=== PATIENT | female | born 1985 | race Caucasian/White ===

== ENCOUNTER 2019-01-05 02:55 | Inpatient (IN) | payer OTHER ==
[~2019-01-05] VITALS: Ht 172.7 cm; Wt 100.0 kg
--- NOTE | 2019-01-05 03:18 | NUR ---
PT BIB [facility] STATING [facility] HAS PLACE PT ON LEGAL 1999 FOR SI,PT CALLED SPD DUE TO SI, PT WAS JUST DISCHARGED FROM [facility] AFTER A 3 DAY STAY FOR SAME AND WAS DISCHARGED 2 HOURS AGO, BELONGINGS REMOVED AND 3 BAGS PLACED IN LOCKED LOCKER, PLACED IN GOWN AND GARAGE DOORS DOWN SITTER OUTSIDE ROOM
[2019-01-05 03:36] LABS: BASOPHILS # (AUTO) 0.06 x10^3/uL (0-0.1); BASOPHILS % (AUTO) 1 % (0-1); EOSINOPHILS # (AUTO) 0.07 x10^3/uL (0-0.4); EOSINOPHILS % (AUTO) 1 % (1-7); LYMPHOCYTES # (AUTO) 1.63 x10^3/uL (1-3.4); LYMPHOCYTES % (AUTO) 15 % (22-44); MD NO; MEAN CORPUSCULAR HEMOGLOBIN 29.6 pg (27.0-34.8); MEAN CORPUSCULAR HGB CONC 34.2 g/dL (32.4-35.8); MEAN CORPUSCULAR VOLUME 86.7 fL (80-100); MEAN PLATELET VOLUME 7.2 fL (7.4-10.4); MONOCYTES # (AUTO) 0.51 x10^3/uL (0.2-0.8); MONOCYTES % (AUTO) 5 % (2-9); NEUTROPHILS # (AUTO) 8.44 x10^3/uL (1.8-6.8); NEUTROPHILS % (AUTO) 79 % (42-75); PLATELET COUNT 424 x10^3/uL (130-400); RED BLOOD COUNT 4.69 x10^6/uL (3.82-5.3); RED CELL DISTRIBUTION WIDTH 15.1 % (9.6-15.2)
[2019-01-05 03:49] LABS: ALANINE AMINOTRANSFERASE 27 U/L (12-78); ALBUMIN 3.7 g/dL (3.4-5.0); ANION GAP 8 mmol/L (5-15); CALCIUM 8.9 mg/dL (8.5-10.1); CHLORIDE 110 mmol/L (98-107); CREATININE 0.91 mg/dL (0.55-1.02); SALICYLATE LEVEL 2.1 mg/dL (2.8-20.0)
[2019-01-05 03:51] LABS: ALKALINE PHOSPHATASE 66 U/L (45-117); TOTAL PROTEIN 7.1 g/dL (6.4-8.2)
[2019-01-05 03:58] LABS: AMPHETAMINE SCREEN, URINE Negative (Negative); BARBITURATE SCREEN, URINE Negative (Negative); BENZODIAZEPINE SCREEN, URINE Negative (Negative); CANNABINOID SCREEN, URINE Positive (Negative); COCAINE SCREEN, URINE Negative (Negative); METHADONE SCREEN, URINE Negative (Negative); OPIATE SCREEN, URINE Negative (Negative)
[2019-01-05] MEDS ORDERED: IBUPROFEN 800 MG TABLET PO ONE (04:00)
[2019-01-05 04:07] LABS: ACETAMINOPHEN < 2 mcg/mL (10-30); BILIRUBIN,TOTAL < 0.1 mg/dL (0.2-1.0)
[2019-01-05] MEDS ORDERED: IBUPROFEN 800 MG TABLET ONE (04:12)
--- NOTE | 2019-01-05 04:20 | NUR ---
PT RESTING IN NAD
--- NOTE | 2019-01-05 04:26 | NUR ---
called spd and was tols they did not complete a legal 1999 pt came voluntary
--- NOTE | 2019-01-05 04:49 | NUR ---
robot placed in pts room poc discussed with pt
--- NOTE | 2019-01-05 05:15 | NUR ---
report to tele psych md
--- NOTE | 2019-01-05 06:33 | NUR ---
TO PLACE PT ON LEGAL 1999 RECOMENDED BY TELE PSYCH
--- NOTE | 2019-01-05 07:00 | NUR ---
Assumed c/o pt from JALEN Sanchez. Pt sleeping at this time. Room secure, sitter outside doorway.
--- NOTE | 2019-01-05 08:00 | NUR ---
Pt requested to be moved to room where she can have it completely dark to sleep. Momentarily moved to 40, then stated that the dark was making her more depressed & requested to be moved back to 39. Moved back, walked to restroom twice. Breakfast tray ordered, pt aware of hold status & POC. Otherwise remains cooperative.
--- NOTE | 2019-01-05 08:28 | NUR ---
Meal tray refused, pt states she has egg allergy. Chart changed to reflect this & dietary called to order new tray.
--- NOTE | 2019-01-05 08:50 | NUR ---
REPORT FROM AMARA RAO PATIENT A LEGAL HOLD ROOM SECURED W/ PSYCHIATRIC PRECAUTIONS 1:1 SITTER AT BEDSIDE PATIENT DENIES COMPLIANTS (ASKING FOR ADDITIONAL BLANKET/PILLOW)-PROM BURN OFF OPERATOR PROVIDED HER W/ BOTH. ALTERNATING BETWEEN SLEEPING AND WATCHING TELEVISION. WILL CONTINUE TO MONITOR
--- NOTE | 2019-01-05 09:50 | NUR ---
PATIENT A LEGAL HOLD ROOM SECURED W/ PSYCHIATRIC PRECAUTIONS 1:1 SITTER AT BEDSIDE DENIES COMPLIANTS WILL CONTINUE TO MONITOR
--- NOTE | 2019-01-05 10:08 | NUR ---
Hospitalist at bedside
--- NOTE | 2019-01-05 10:14 | NUR ---
REPORT TO THONY RAO ([employer] DEVELOPER) R/T PENDING TRANSFER. THONY ASKING FOR BEAVIORAL PRN MEDICATION ORDERS PRIOR TO TRANSFER-THROUGHPUT RN (MIKAEL) TO CONTACT HOSPITALIST FOR ORDERS
[2019-01-05 10:35] VITALS: BP 139/89
[2019-01-05] MEDS: NICOTINE 21 MG/24 HR PATCH.TD24 TD SCH (11:13)
[2019-01-05] MEDS: ENOXAPARIN 40 MG/0.4 ML SQ SCH (11:17)
[2019-01-05] MEDS: ACETAMINOPHEN 325 MG TABLET PO PRN (14:39)
[2019-01-05 19:52] VITALS: BP 158/108
[2019-01-05] MEDS: IBUPROFEN 200 MG TABLET PO PRN (20:42)
[2019-01-06] MEDS: ACETAMINOPHEN 325 MG TABLET PO PRN ×2 (00:41→09:41)
[2019-01-06] MEDS: OXYMETAZOLINE NASAL SPRAY 0.05%,30ML NAS SCH ×2 (00:41→09:47)
[2019-01-06] MEDS: IBUPROFEN 200 MG TABLET PO PRN ×2 (03:41→19:23)
[2019-01-06 05:28] LABS: BASOPHILS # (AUTO) 0.08 x10^3/uL (0-0.1); BASOPHILS % (AUTO) 1 % (0-1); EOSINOPHILS # (AUTO) 0.24 x10^3/uL (0-0.4); EOSINOPHILS % (AUTO) 3 % (1-7); LYMPHOCYTES # (AUTO) 2.24 x10^3/uL (1-3.4); LYMPHOCYTES % (AUTO) 24 % (22-44); MD NO; MEAN CORPUSCULAR HEMOGLOBIN 29.8 pg (27.0-34.8); MEAN CORPUSCULAR HGB CONC 34.1 g/dL (32.4-35.8); MEAN CORPUSCULAR VOLUME 87.4 fL (80-100); MEAN PLATELET VOLUME 7.5 fL (7.4-10.4); MONOCYTES # (AUTO) 0.68 x10^3/uL (0.2-0.8); MONOCYTES % (AUTO) 7 % (2-9); NEUTROPHILS # (AUTO) 6.22 x10^3/uL (1.8-6.8); NEUTROPHILS % (AUTO) 66 % (42-75); PLATELET COUNT 408 x10^3/uL (130-400); RED BLOOD COUNT 4.42 x10^6/uL (3.82-5.3); RED CELL DISTRIBUTION WIDTH 14.6 % (9.6-15.2)
[2019-01-06 05:34] LABS: ALANINE AMINOTRANSFERASE 22 U/L (12-78); ALBUMIN 3.1 g/dL (3.4-5.0); ANION GAP 6 mmol/L (5-15); CALCIUM 8.5 mg/dL (8.5-10.1); CHLORIDE 109 mmol/L (98-107)
[2019-01-06 05:37] LABS: ALKALINE PHOSPHATASE 53 U/L (45-117); BILIRUBIN,TOTAL 0.4 mg/dL (0.2-1.0); CREATININE 0.74 mg/dL (0.55-1.02)
[2019-01-06 08:00] VITALS: BP 161/112
[2019-01-06] MEDS: AMLODIPINE 5 MG TABLET PO SCH (09:00)
[2019-01-06] MEDS: NICOTINE 21 MG/24 HR PATCH.TD24 TD SCH (09:40)
[2019-01-06 10:02] VITALS: BP 126/85
[2019-01-06] MEDS: ENOXAPARIN 40 MG/0.4 ML SQ SCH (10:30)
[2019-01-06] MEDS: LORazepam 1MG TABLET PO PRN ×2 (10:51→18:52)
[2019-01-06 20:12] VITALS: BP 129/83
[2019-01-07] MEDS: LORazepam 1MG TABLET PO PRN ×3 (07:45→20:06)
[2019-01-07] MEDS: ACETAMINOPHEN 325 MG TABLET PO PRN ×2 (07:45→16:14)
[2019-01-07] MEDS: AMLODIPINE 5 MG TABLET PO SCH ×2 (07:46→08:26)
[2019-01-07] MEDS: OXYMETAZOLINE NASAL SPRAY 0.05%,30ML NAS SCH ×2 (07:48→20:12)
[2019-01-07 07:50] VITALS: BP 117/71
[2019-01-07] MEDS: NICOTINE 21 MG/24 HR PATCH.TD24 TD SCH (07:54)
[2019-01-07] MEDS: ENOXAPARIN 40 MG/0.4 ML SQ SCH (10:30)
[2019-01-07] MEDS: IBUPROFEN 200 MG TABLET PO PRN ×2 (10:34→20:06)
[2019-01-07] MEDS: ALBUTEROL PO PRN ×2 (17:38→20:06)
[2019-01-07 19:09] VITALS: BP 123/72
[2019-01-08] MEDS: NICOTINE 21 MG/24 HR PATCH.TD24 TD SCH (07:48)
[2019-01-08] MEDS: OXYMETAZOLINE NASAL SPRAY 0.05%,30ML NAS SCH ×2 (07:48→21:00)
[2019-01-08] MEDS: AMLODIPINE 5 MG TABLET PO SCH ×2 (07:49→07:59)
[2019-01-08] MEDS: LORazepam 1MG TABLET PO PRN ×3 (07:59→19:22)
[2019-01-08] MEDS: ACETAMINOPHEN 325 MG TABLET PO PRN ×2 (07:59→15:52)
[2019-01-08 08:03] VITALS: BP 128/81
[2019-01-08] MEDS: ALBUTEROL PO PRN ×2 (08:49→18:00)
[2019-01-08] MEDS: ENOXAPARIN 40 MG/0.4 ML SQ SCH (10:30)
[2019-01-08] MEDS: IBUPROFEN 200 MG TABLET PO PRN ×2 (11:58→19:23)
[2019-01-08 19:54] VITALS: BP 127/90
[2019-01-09 07:49] VITALS: BP 103/62
[2019-01-09] MEDS: LORazepam 1MG TABLET PO PRN ×3 (07:57→19:38)
[2019-01-09] MEDS: ACETAMINOPHEN 325 MG TABLET PO PRN (07:57)
[2019-01-09] MEDS: NICOTINE 21 MG/24 HR PATCH.TD24 TD SCH (08:01)
[2019-01-09] MEDS: OXYMETAZOLINE NASAL SPRAY 0.05%,30ML NAS SCH ×2 (09:00→20:55)
[2019-01-09] MEDS: ENOXAPARIN 40 MG/0.4 ML SQ SCH (10:07)
[2019-01-09] MEDS: IBUPROFEN 200 MG TABLET PO PRN ×2 (10:52→19:32)
[2019-01-09] MEDS: ALBUTEROL PO PRN (17:20)
[2019-01-09 19:20] VITALS: BP 113/73
[2019-01-10] MEDS: IBUPROFEN 200 MG TABLET PO PRN ×3 (02:57→19:37)
[2019-01-10] MEDS: LORazepam 1MG TABLET PO PRN ×4 (02:57→19:37)
[2019-01-10 08:00] VITALS: BP 135/83
[2019-01-10] MEDS: NICOTINE 21 MG/24 HR PATCH.TD24 TD SCH (09:13)
[2019-01-10] MEDS: OXYMETAZOLINE NASAL SPRAY 0.05%,30ML NAS SCH ×2 (09:14→20:00)
[2019-01-10] MEDS: ENOXAPARIN 40 MG/0.4 ML SQ SCH (09:15)
[2019-01-10] MEDS: ALBUTEROL PO PRN (09:16)
[2019-01-10] MEDS: ACETAMINOPHEN 325 MG TABLET PO PRN ×2 (09:17→15:05)
[2019-01-10 19:47] VITALS: BP 110/75
[2019-01-11 06:41] LABS: CREATININE 0.74 mg/dL (0.55-1.02)
[2019-01-11] MEDS: IBUPROFEN 200 MG TABLET PO PRN ×2 (07:59→15:17)
[2019-01-11] MEDS: NICOTINE 21 MG/24 HR PATCH.TD24 TD SCH (07:59)
[2019-01-11] MEDS: LORazepam 1MG TABLET PO PRN ×3 (07:59→22:32)
[2019-01-11 08:00] VITALS: BP 121/81
[2019-01-11] MEDS: OXYMETAZOLINE NASAL SPRAY 0.05%,30ML NAS SCH ×2 (08:44→20:18)
[2019-01-11] MEDS: ENOXAPARIN 40 MG/0.4 ML SQ SCH (10:30)
[2019-01-11] MEDS: ACETAMINOPHEN 325 MG TABLET PO PRN ×2 (12:50→22:32)
[2019-01-11] MEDS: ALBUTEROL PO PRN (12:53)
[2019-01-11 19:17] VITALS: BP 109/65
[2019-01-12 07:30] VITALS: BP 110/74
[2019-01-12] MEDS: NICOTINE 21 MG/24 HR PATCH.TD24 TD SCH (08:21)
[2019-01-12] MEDS: OXYMETAZOLINE NASAL SPRAY 0.05%,30ML NAS SCH ×2 (08:22→20:52)
[2019-01-12] MEDS: LORazepam 1MG TABLET PO PRN ×3 (08:22→20:53)
[2019-01-12] MEDS: ACETAMINOPHEN 325 MG TABLET PO PRN ×3 (08:22→20:53)
[2019-01-12] MEDS: ENOXAPARIN 40 MG/0.4 ML SQ SCH (10:30)
[2019-01-12] MEDS: IBUPROFEN 200 MG TABLET PO PRN (11:40)
[2019-01-12] MEDS: ALBUTEROL PO PRN (17:51)
[2019-01-12 19:45] VITALS: BP_SYST 108; BP_SYST 152; BP_DIAS 103; BP_DIAS 75
[2019-01-13] MEDS: LORazepam 1MG TABLET PO PRN ×3 (08:04→20:27)
[2019-01-13] MEDS: ACETAMINOPHEN 325 MG TABLET PO PRN ×2 (08:04→14:23)
[2019-01-13 08:31] VITALS: BP 97/66
[2019-01-13] MEDS: NICOTINE 21 MG/24 HR PATCH.TD24 TD SCH (10:59)
[2019-01-13] MEDS: OXYMETAZOLINE NASAL SPRAY 0.05%,30ML NAS SCH ×2 (11:01→11:03)
[2019-01-13] MEDS: ENOXAPARIN 40 MG/0.4 ML SQ SCH (11:01)
[2019-01-13 19:22] VITALS: BP 94/57
[2019-01-14] MEDS: LORazepam 1MG TABLET PO PRN ×3 (07:52→20:21)
[2019-01-14] MEDS: ACETAMINOPHEN 325 MG TABLET PO PRN ×2 (07:52→14:34)
[2019-01-14 08:25] VITALS: BP 101/51
[2019-01-14] MEDS: NICOTINE 21 MG/24 HR PATCH.TD24 TD SCH (10:57)
[2019-01-14] MEDS: ALBUTEROL PO PRN (10:58)
[2019-01-14] MEDS: OXYMETAZOLINE NASAL SPRAY 0.05%,30ML NAS SCH ×2 (10:58→20:17)
[2019-01-14] MEDS: ENOXAPARIN 40 MG/0.4 ML SQ SCH (12:03)
[2019-01-14 19:42] VITALS: BP 102/66
[2019-01-14] MEDS: IBUPROFEN 200 MG TABLET PO PRN (20:22)
[2019-01-15] MEDS: ACETAMINOPHEN 325 MG TABLET PO PRN (07:07)
[2019-01-15] MEDS: LORazepam 1MG TABLET PO PRN (07:07)
[2019-01-15 07:43] VITALS: BP 104/72
[2019-01-15] MEDS: NICOTINE 21 MG/24 HR PATCH.TD24 TD SCH (08:14)
[2019-01-15] MEDS: OXYMETAZOLINE NASAL SPRAY 0.05%,30ML NAS SCH (08:14)
[2019-01-15] MEDS ORDERED: OXYM-35 NAS (09:51)
[2019-01-15] MEDS: ENOXAPARIN 40 MG/0.4 ML SQ SCH (10:28)
== END 2019-01-15 14:45 | disposition home or self-care (01) | DRG 885 ==
LOC: ED 03:57 → 2N 08:37 → UNDOADMIN 10:13
PROVIDERS: ADMIT Internal Medicine; ATTEND Internal Medicine
DX: F33.9 Major depressive disorder, recurrent, unspecified (principal); D72.829 Elevated white blood cell count, unspecified; Z68.33 Body mass index [BMI] 33.0-33.9, adult; F19.10 Other psychoactive substance abuse, uncomplicated; R73.9 Hyperglycemia, unspecified; E66.01 Morbid (severe) obesity due to excess calories; F41.9 Anxiety disorder, unspecified; Z63.8 Other specified problems related to primary support group; Z72.0 Tobacco use; Z71.51 Drug abuse counseling and surveillance of drug abuser; Z91.012 Allergy to eggs; Z90.49 Acquired absence of other specified parts of digestive tract
CPT/HCPCS: 36415; 80053; 80307; 82565; 84703; 85025; 99285; G0378; J1650

== ENCOUNTER 2020-02-03 04:12 | Emergency (ER) | payer MEDICAID ==
[~2020-02-03] VITALS: Ht 180.3 cm; Wt 130.0 kg
[~2020-02-03 04:12] MED LIST: OXYM-35 NAS
--- NOTE | 2020-02-03 04:30 | NUR ---
ASHWIN FROM HOME, PT REPORTS A LOT OF ANXIETY AND FEELS VERY TIRED, HAS NOT BEEN ABLE TO SLEEP IN DAYS. PER PT REPORT SHE WAS DISCHARGED RECENTLY FROM [facility] AND PRESCRIBED THORAZINE, ATIVAN AND HALDOL, PT STATES ATIVAN DOES NOT HELP HER. VITAL SIGNS MONITORS PLACED, CALL LIGHT WITHIN REACH.
--- NOTE | 2020-02-03 05:12 | NUR ---
PT REQUESTING WATER MULTIPLE TIMES, PT CONTINUED TO REQUEST WATER IN A DEMANDING MANNER, YELLING AT THIS RN. PROVIDED WATER TO PT.
[2020-02-03 05:25] VITALS: BP 123/79
--- NOTE | 2020-02-03 05:30 | NUR ---
ERP AT BEDSIDE FOR EVAL.
[2020-02-03 05:53] LABS: BASOPHILS # (AUTO) 0.04 x10^3/uL (0-0.1); BASOPHILS % (AUTO) 0 % (0-1); EOSINOPHILS # (AUTO) 0.03 x10^3/uL (0-0.4); EOSINOPHILS % (AUTO) 0 % (1-7); LYMPHOCYTES # (AUTO) 2.17 x10^3/uL (1-3.4); LYMPHOCYTES % (AUTO) 20 % (22-44); MD NO; MEAN CORPUSCULAR HEMOGLOBIN 29.9 pg (27.0-34.8); MEAN CORPUSCULAR VOLUME 87.9 fL (80-100); MONOCYTES # (AUTO) 0.79 x10^3/uL (0.2-0.8); MONOCYTES % (AUTO) 7 % (2-9); NEUTROPHILS # (AUTO) 8.04 x10^3/uL (1.8-6.8); NEUTROPHILS % (AUTO) 73 % (42-75); PLATELET COUNT 365 x10^3/uL (130-400); RED BLOOD COUNT 4.75 x10^6/uL (3.82-5.3); RED CELL DISTRIBUTION WIDTH 13.4 % (9.6-15.2)
--- NOTE | 2020-02-03 05:53 | NUR ---
PT IN BATHROOM.
--- NOTE | 2020-02-03 05:57 | NUR ---
PT STATES SHE FEELS MUCH BETTER NOW, AND WOULD LIKE TO LEAVE ONCE BLOOD RESULTS COME BACK SHE IS REFUSING THE EKG AT THIS MOMENT. ERP UPDATED.
[2020-02-03 06:02] LABS: ALBUMIN 3.8 g/dL (3.4-5.0); ANION GAP 7 mmol/L (5-15); CHLORIDE 108 mmol/L (98-107); CREATININE 0.86 mg/dL (0.55-1.02)
== END 2020-02-03 06:13 | disposition home or self-care (01) ==
LOC: ED 04:34
DX: F32.9 Major depressive disorder, single episode, unspecified (principal); Z91.19 Patient's noncompliance with other medical treatment and regimen
CPT/HCPCS: 36415; 80048; 82040; 85025; 99283

== ENCOUNTER 2020-02-03 20:19 | Emergency (ER) | payer MEDICAID ==
[~2020-02-03] VITALS: Ht 177.8 cm; Wt 120.0 kg
[2020-02-03] MEDS ORDERED: LORazepam 1MG TABLET ONE (20:52)
[2020-02-03] MEDS ORDERED: LORazepam 1MG TABLET PO ONE (21:00)
--- NOTE | 2020-02-03 21:01 | NUR ---
PT TO ED PER [facility] FOR SI. PT TEARFUL, ANXIOUS, FLIGHT OF IDEA AND RAPID SPEECH. PT REPORTS THAT HER PLAN WAS TO TAKE ALL OF HER MEDICATIONS INCLUDING TRAZADONE AND ATIVAN AND DRINK A 12 PACK OF HEINEKEN. PT REPORTS SHE TOLD HER NEIGHBOR HER PLAN AND HER NEIGHBOR CALLED EMS. PT REPORTS HX OF SI AND SA. REPORTS LAST SA WAS 6 MONTHS AGO AND SHE OVERDOSED. REPORTS THAT SHE WAS HERE THIS MORNING AND PT STATES "I LIED TO YOU GUYS AND TOLD YOU I WASN'T SUICIDAL BUT I WAS AND I JUST LIED AND IM SORRY". PT PULLED HAND COTTON CLASSER OUT OF BAG, SQUEEZED SOME INTO HER HANDS AND STARTED RUBBING IT ONTO HER FACE, PT STARTED THEN STARTED YELLING AND CRYING "MY NEIGHBOR TOUCHED MY FACE AND IM SO SCARED OF THE VIRUS". THIS RN WIPED HAND COTTON CLASSER OFF OF PT'S FACE. PT PLACED IN GOWN AND ALL BELONGINGS PLACED IN BAGS (3), LABELED AND PLACED IN LOCKED CABINET. GARAGE DOORS CLOSED AND ALL ITEMS REMOVED FROM ROOM BESIDES BEDSIDE TABLE.
[2020-02-03 21:14] LABS: AMPHETAMINE SCREEN, URINE Negative (Negative); BARBITURATE SCREEN, URINE Negative (Negative); BENZODIAZEPINE SCREEN, URINE Negative (Negative); CANNABINOID SCREEN, URINE Positive (Negative); COCAINE SCREEN, URINE Negative (Negative); METHADONE SCREEN, URINE Negative (Negative); OPIATE SCREEN, URINE Negative (Negative)
[2020-02-03 21:54] LABS: ANION GAP 7 mmol/L (5-15); BASOPHILS # (AUTO) 0.04 x10^3/uL (0-0.1); BASOPHILS % (AUTO) 0 % (0-1); CALCIUM 8.9 mg/dL (8.5-10.1); CHLORIDE 105 mmol/L (98-107); CREATININE 0.89 mg/dL (0.55-1.02); EOSINOPHILS # (AUTO) 0.05 x10^3/uL (0-0.4); EOSINOPHILS % (AUTO) 1 % (1-7); LYMPHOCYTES # (AUTO) 2.42 x10^3/uL (1-3.4); LYMPHOCYTES % (AUTO) 21 % (22-44); MD NO; MEAN CORPUSCULAR HEMOGLOBIN 29.6 pg (27.0-34.8); MEAN CORPUSCULAR HGB CONC 33.4 g/dL (32.4-35.8); MEAN CORPUSCULAR VOLUME 88.5 fL (80-100); MEAN PLATELET VOLUME 8.1 fL (7.4-10.4); MONOCYTES # (AUTO) 1.03 x10^3/uL (0.2-0.8); MONOCYTES % (AUTO) 9 % (2-9); NEUTROPHILS # (AUTO) 7.87 x10^3/uL (1.8-6.8); NEUTROPHILS % (AUTO) 69 % (42-75); PLATELET COUNT 376 x10^3/uL (130-400); RED BLOOD COUNT 4.78 x10^6/uL (3.82-5.3); RED CELL DISTRIBUTION WIDTH 13.5 % (9.6-15.2)
[2020-02-03 21:56] LABS: SALICYLATE LEVEL < 1.7 mg/dL (2.8-20.0)
[2020-02-03] MEDS ORDERED: ZIPRASIDONE 20 MG INJ IM ONE ×2 (22:41→23:00)
--- NOTE | 2020-02-03 22:47 | NUR ---
OFFERED TO GET PT FOOD. PT STATED SHE WOULD LIKE FOOD AND SOME LIQUIDS. WENT TO GO GET FOOD FOR THIS PT AND ANOTHER PT. WALKED IN TO PT'S ROOM AND PT STATES "YOU STUPID B, I ASKED FOR A PILLOW, SHOULD I SPELL THAT FOR YOU? I DIDN'T ASKING FOR F FOOD ARE YOU STUPID? YOURE A F IDIOT. ASKED PT TO REMAIN CALM AND TO NOT VERBALLY ABUSE STAFF. PT THEN USING CALL LIGHT AND SCREAMING AT STAFF OVER THE CALL LIGHT. PT THEN OPENED DOOR AND SAID SHE WAS GOING TO HIKE HOME. SECURITY CALLED AND PT THEN RETURNED TO HER ROOM. SPOKE WITH DR. FROST REGARDING PT'S BEHAVIOR AND 10MG GEODON ORDERED. SECURITY OUTSIDE DOOR AND EDT IN ROOM WITH THIS RN AND PT. PT STATES "I DON'T WANT THIS DUMB B TO GIVE ME A SHOT, I'LL PUNCH HER". PT REMINDED THAT PUNCHING A HEALTHCARE WORKER IS NOT TOLERATED AND THREATENING TO HARM HEALTHCARE WORKERS WILL NOT BE TOLERATE. IM INJECTION OF GEODON GIVEN.
--- NOTE | 2020-02-03 23:46 | NUR ---
ATTEMPTED TO TAKE PT'S VITALS FOR PT. AND PT VERBALLY ABUSIVE WITH THIS RN. SECURITY CALLED TO ROOM. PT PLACED ON BLOOD PRESSURE CUFF AND CONTINUOUS PULSE OX. PT REMINDED BY SECURITY THAT VERBAL ABUSE OF STAFF WILL NOT BE TOLERATED.
--- NOTE | 2020-02-04 01:17 | NUR ---
PSYCH PACKET FAXED TO [facility], [facility], [place], [place].
--- NOTE | 2020-02-04 01:23 | NUR ---
PT SLEEPING AT THIS TIME.
--- NOTE | 2020-02-04 02:20 | NUR ---
JALEN Cheng called from [facility]. They will not accept patient at this time but will reevaluate later in the morning if she has not been accepted elsewhere.
--- NOTE | 2020-02-04 04:10 | NUR ---
PT NOW AWAKE AND TEARFUL. PT TEARFUL ABOUT HER WEIGHT AND STATES SHE IS SUPPOSED TO HAVE ELECTIVE SURGERY TO REMOVAL SKIN OFF OF HER ARMS. REPORTS SHE WAS SUPPOSED TO HAVE THIS DONE ON SATURDAY BUT DID NOT GO. REPORTS THEY TOLD HER TO COME BY 6PM TONIGHT AND SHE REPORTS THIS IS 7 HOURS AWAY. PT PROVIDED WATER AND TISSUES. RESTING AT THIS TIME.
--- NOTE | 2020-02-04 04:14 | NUR ---
German morris in [facility] - 02/04/20 at 0415 by MELL PT SLEEPING WITH SITTER OUTSIDE ROOM.
[2020-02-04] MEDS ORDERED: ZIPRASIDONE 20 MG INJ IM ONE ×2 (04:23→04:30)
--- NOTE | 2020-02-04 04:48 | NUR ---
PT PACING THE HALLWAY AND REFUSING TO GO BACK IN THE ROOM. PT REQUESTING TO SPEAK WITH THE DOCTOR AND ASKED WHEN SHE COULD LEAVE. PT INFORMED OF LEGAL HOLD. PT VERY UPSET REGARDING LEGALLY HOLD. EXPLAINED TO PT THE REASON FOR THE LEGAL HOLD AND HER SUICIDAL IDEATIONS THAT SHE STATED LAST NIGHT. PT STATES "NO YOU ALL MADE THAT UP, THAT WAS 10 YEARS AGO". PT CONTINUES TO BE VERBALLY ABUSIVE WITH STAFF. DR. FERNANDES INFORMED OF PT'S AGITATION. 10MG GEODON ORDERED. WENT TO GIVEN GEODON TO PT AND PT REFUSING. PT REQUESTING TO SPEAK WITH DR. FERNANDES. TO BEDSIDE. PT STATES "I DON'T WANT HER TO GIVE ME ANYTHING WITH THAT LITTLE NEEDLE. I AM BEING VERY CALM AND I WOKE UP WITH ALOT OF CLARITY". PT CONTINUES WITH RAPID SPEECH. WILL HOLD GEODON AT THIS TIME. DR. FERNANDES TO ORDER TELEPSYCH CONSULT TO EVALUATE PT.
--- NOTE | 2020-02-04 05:04 | NUR ---
PT GOT OUT OF BED AND LIFTED THE GARAGE DOOR. PT INFORMED THAT GARAGE DOORS NEED TO STAY DOWN. PT THEN STATED THAT THE SITTER CAME AND HELPED HER PULL THE DOOR UP. CONFIRMED WITH SITTER THAT THIS WAS NOT ACCURATE. PT CONTINUING TO BE VERBALLY ABUSIVE TO THIS RN AND NOT FOLLOWING DIRECTIONS. PT REQUESTING CELL PHONE. INFORMED PT THAT WE CANNOT GIVE HER HER BELONGINGS AT THIS TIME. SHE REQUESTED TO CALL HER PARENTS AND I DID TELL HER THAT SHE COULD USE THE PHONE BY REGISTRATION TO MAKE A PHONE CALL. PT STATES " LISTEN I ALREADY HAD CONVERSATION WITH MY DOCTOR AND SECURITY AND I WILL GET MY CELL PHONE BACK". GARAGE DOOR CLOSED AND PT LAYING DOWN AT THIS TIME.
--- NOTE | 2020-02-04 05:35 | NUR ---
PT CALLED FROM ROOM AND STATED SHE REMEMBERED HER MOTHER'S PHONE NUMBER AND WOULD LIKE TO MAKE A PHONE CALL. PT WALKED TO THE REGISTRATION PHONE AND WAS ABLE TO MAKE PHONE CALL. PT WAS TELLING THE VOICEMAIL "MY NURSE'S NAME IS FADI AND SHE IS GOING TO GIVE ME A SHOT AND I DON'T WANT THE SHOT". EXPLAINED TO PT THAT THIS WAS ALREADY DISCUSSED WITH DR. FERNANDES AND WE DID NOT GIVE HER THE MEDICATION. PT BEING UNTRUTHFUL AND INFORMED PT SHE NEEDED TO GO BACK TO HER ROOM.
--- NOTE | 2020-02-04 06:18 | NUR ---
PT WITH RAPID SPEECH AND YELLING INSIDE ROOM. PT TALKING ABOUT SATAN AND THEN VERY TEARFUL. TELEPSYCH CONSULT ORDERED AND TELEPSYCH MONITOR PLACED IN ROOM.
--- NOTE | 2020-02-04 07:04 | NUR ---
REPORT GIVEN TO SWETA RAO
--- NOTE | 2020-02-04 07:07 | NUR ---
REPORT RECEIVED FROM FADI RAO. PT IS RESTING ON GURDipity W/ SITTER OUTSIDE ROOM AND GARAGE DOORS DOWN. TELEPSYCH ROBOT IN ROOM.
[2020-02-04 07:16] VITALS: BP 112/71
--- NOTE | 2020-02-04 07:19 | NUR ---
PT DENIES SI SINCE LAST SCREENING. STATES "MY BEST FRIEND IS A DOCTOR AND HE TOLD ME I JUST NEED TO HYDRATE AND REST SO THAT'S WHAT IM TRYING TO DO IS HYDRATE AND REST, MY BEST FRIENDS NURSE WAS NAMED SWETA AND SHE OF CANCER". AWAITING TELEPSYCH CONSULT.
--- NOTE | 2020-02-04 08:11 | NUR ---
THROUGHPUT RN: SPOKE W/ TELEPSYCH MD WHO WILL DO ASSESSMENT SHORTLY.
--- NOTE | 2020-02-04 08:27 | NUR ---
THROUGHPUT RN: TELEPSYCH MD CALLED AND STATED PT WILL BE PLACED ON LEGAL HOLD.
--- NOTE | 2020-02-04 08:30 | NUR ---
BREAKFAST TRAY DELIVERED.
--- NOTE | 2020-02-04 08:43 | NUR ---
HOSPITAL BED ORDERED.
--- NOTE | 2020-02-04 09:08 | NUR ---
PER CHEVY PEREZ, A WOMAN CALLED STATING THAT PT NEEDS THIS NUMBER [phone]
--- NOTE | 2020-02-04 09:24 | NUR ---
PT AMBULATED TO THE SHOWER W/ A STEADY GAIT, PROVIDED NEW GOWN. SITTER OUTSIDE SHOWER ROOM. HOSPITAL BED PLACED IN ROOM.
--- NOTE | 2020-02-04 09:48 | NUR ---
PT AWARE MOTHER CALLED ASKING TO SPEAK W/ HER. DOES NOT WISH TO SPEAK W/ HER OR PROVIDE HER W/ ANY INFORMATION AT THIS TIME.
--- NOTE | 2020-02-04 10:02 | NUR ---
REPORT GIVEN TO ARTEM RAO. PT IS READY FOR TRANSPORT AT THIS TIME.
--- NOTE | 2020-02-04 10:22 | NUR ---
PER JESSI PATIENT STARTED SCREAMING THAT SHE NEEDS NICOTINE PATCH. REQUESTED PATCH FROM REBECCA CORTEZ.
[2020-02-04] MEDS ORDERED: NICOTINE 14MG/24 HR PATCH.TD24 ONE (10:26)
[2020-02-04] MEDS ORDERED: NICOTINE 14MG/24 HR PATCH.TD24 TD ONE (10:30)
== END 2020-02-04 11:30 ==
LOC: ED 22:37
DX: F32.9 Major depressive disorder, single episode, unspecified (principal)
CPT/HCPCS: 36415; 80048; 80307; 82040; 84703; 85025; 96372; 99285; J3486

== ENCOUNTER 2020-02-04 10:51 | Inpatient (IN) | payer MEDICAID ==
[~2020-02-04] VITALS: Ht 177.8 cm; Wt 128.9 kg
[2020-02-04] MEDS ORDERED: ONDANSETRON ODT 4 MG PO PRN (11:00)
[2020-02-04] MEDS ORDERED: POLYETHYLENE GLYCOL 17 GM PACKET PO PRN (11:00)
[2020-02-04] MEDS ORDERED: BISACODYL 10 MG SUPP PR PRN (11:00)
[2020-02-04] MEDS ORDERED: ACETAMINOPHEN 325 MG TABLET PO PRN (11:00)
[2020-02-04] MEDS ORDERED: DOCUSATE 100 MG CAPSULE PO PRN (11:00)
[2020-02-04] MEDS ORDERED: HALOPERIDOL 5 MG TABLET PO PRN (11:00)
[2020-02-04] MEDS ORDERED: LORazepam 2 MG/ML, 1ML IM PRN (11:00)
[2020-02-04] MEDS ORDERED: HALOPERIDOL 5 MG/ML IM PRN (11:00)
[2020-02-04] MEDS ORDERED: DIPHENHYDRAMINE 50 MG/ML, 1ML IM PRN (11:00)
[2020-02-04] MEDS ORDERED: PLEASE ENTER HEIGHT AND WEIGHT MC SCH (11:30)
[2020-02-04 11:45] VITALS: BP 149/70
[2020-02-04 14:12] VITALS: BP 126/80
[2020-02-04 19:01] LABS: MICROSCOPIC AUTO
[2020-02-04 19:54] VITALS: BP 142/88
[2020-02-04] MEDS: DIPHENHYDRAMINE 50 MG CAPSULE PO PRN (23:11)
[2020-02-05 05:49] LABS: CHOLESTEROL, TOTAL 172 mg/dL (140-239); TRIGLYCERIDES 109 mg/dL (50-200); VLDL CHOLESTEROL 22 mg/dL (0-25)
[2020-02-05 05:53] LABS: CHOL/HDL RATIO 3.3; HDL CHOL % 30 % (28-40); HDL CHOLESTEROL (DIRECT) 52 mg/dL (40-60); LDL CHOLESTEROL,CALCULATED 98 mg/dL (54-169); LDL/HDL RATIO 1.9 (0.5-3.0)
[2020-02-05 05:59] LABS: FREE T4 (FREE THYROXINE) 1.18 ng/dL (0.76-1.46)
[2020-02-05 07:00] VITALS: BP 119/77
[2020-02-05] MEDS ORDERED: NICOTINE 21 MG/24 HR PATCH.TD24 ONE (07:47)
[2020-02-05] MEDS: NICOTINE 21 MG/24 HR PATCH.TD24 TD SCH (07:49)
[2020-02-05] MEDS: DIPHENHYDRAMINE 50 MG CAPSULE PO PRN ×2 (08:39→23:04)
[2020-02-05] MEDS ORDERED: DIPHENHYDRAMINE 50 MG CAPSULE PO SCH (09:30)
[2020-02-05] MEDS ORDERED: ZIPRASIDONE 40MG CAPSULE PO SCH ×2 (09:30→21:00)
[2020-02-05] MEDS ORDERED: ZIPRASIDONE 20 MG INJ IM PRN (09:30)
[2020-02-05] MEDS: ZIPRASIDONE 40MG CAPSULE PO SCH ×2 (10:04→20:56)
[2020-02-05 19:27] VITALS: BP 117/77
[2020-02-06 07:25] VITALS: BP 119/82
[2020-02-06] MEDS: ZIPRASIDONE 40MG CAPSULE PO SCH ×2 (08:52→20:32)
[2020-02-06] MEDS: NICOTINE 21 MG/24 HR PATCH.TD24 TD SCH (08:53)
[2020-02-06 19:13] VITALS: BP 144/86
[2020-02-06] MEDS: DIPHENHYDRAMINE 50 MG CAPSULE PO PRN (21:15)
[2020-02-07 07:32] VITALS: BP 130/82
[2020-02-07] MEDS: NICOTINE 21 MG/24 HR PATCH.TD24 TD SCH (08:43)
[2020-02-07] MEDS: ZIPRASIDONE 40MG CAPSULE PO SCH (08:43)
[2020-02-07] MEDS ORDERED: NICO-487 TD (09:52)
[2020-02-07] MEDS ORDERED: ZIPR40CA2 PO (09:52)
== END 2020-02-07 10:25 | disposition home or self-care (01) | DRG 753 ==
LOC: 3E 11:25
PROVIDERS: ADMIT Psychiatry & Neurology Psychosomatic Medicine; ATTEND Psychiatry & Neurology Psychosomatic Medicine
DX: F31.2 Bipolar disorder, current episode manic severe with psychotic features (principal); E66.01 Morbid (severe) obesity due to excess calories; F17.210 Nicotine dependence, cigarettes, uncomplicated; Z91.19 Patient's noncompliance with other medical treatment and regimen; Z90.49 Acquired absence of other specified parts of digestive tract; Z91.012 Allergy to eggs; Z83.3 Family history of diabetes mellitus; Z68.41 Body mass index [BMI] 40.0-44.9, adult; Z79.899 Other long term (current) drug therapy
CPT/HCPCS: 36415; 71045; 80048; 80061; 80307; 81001; 82040; 84439; 84443; 84702; 84703; 85025; 93005; 96372; 99285; J3486

== ENCOUNTER 2020-02-07 14:44 | Emergency (ER) | payer MEDICAID ==
[~2020-02-07] VITALS: Ht 177.8 cm; Wt 131.0 kg
[~2020-02-07 14:44] MED LIST changes: +NICO-487 TD; +ZIPR40CA2 PO
--- NOTE | 2020-02-07 15:04 | NUR ---
FIRST CONTACT WITH PT. PT STATES JUST RELEASED FROM [facility] THIS AM, STATES FEELING ANXIOUS. PT IS TEARFUL, SPEAKING VERY QUICKLY IN ROOM. DENIES SI/HI AT THIS TIME. PT'S AOX4. RESPS EVEN AND UNLABORED.
--- NOTE | 2020-02-07 15:11 | NUR ---
PA AT BEDSIDE TO EVALUATE AT THIS TIME.
--- NOTE | 2020-02-07 15:16 | NUR ---
PT AMB TO BR WITH STEADY GAIT. URINE CUP GIVEN.
[2020-02-07] MEDS ORDERED: HYDROXYZINE PAMOATE 50MG CAP ONE (15:19)
--- NOTE | 2020-02-07 15:25 | NUR ---
pt medicated per emar. pt tolerated well. rehabilitation team lead at bedside to evaluate at this time.
[2020-02-07] MEDS ORDERED: HYDROXYZINE PAMOATE 50MG CAP PO ONE (15:30)
--- NOTE | 2020-02-07 15:38 | NUR ---
DURING EXAM BY LORENZO, PT STATES"I WANNA KILL MY SELF. I WANNA TAKE BUNCH OF MEDS." L2K BY LORENZO AT THIS TIME. ROOM SECURE. BELONGINGS PUT INTO ONE BAG AND PUT INTO THE LOCKER AT THIS TIME.
--- NOTE | 2020-02-07 15:40 | NUR ---
UA SENT AT THIS TIME.
[2020-02-07 15:49] LABS: BASOPHILS # (AUTO) 0.04 x10^3/uL (0-0.1); BASOPHILS % (AUTO) 0 % (0-1); EOSINOPHILS # (AUTO) 0.05 x10^3/uL (0-0.4); EOSINOPHILS % (AUTO) 0 % (1-7); LYMPHOCYTES # (AUTO) 1.94 x10^3/uL (1-3.4); LYMPHOCYTES % (AUTO) 15 % (22-44); MEAN CORPUSCULAR HEMOGLOBIN 29.7 pg (27.0-34.8); MEAN CORPUSCULAR HGB CONC 33.5 g/dL (32.4-35.8); MEAN CORPUSCULAR VOLUME 88.7 fL (80-100); MEAN PLATELET VOLUME 8.3 fL (7.4-10.4); MONOCYTES # (AUTO) 0.59 x10^3/uL (0.2-0.8); MONOCYTES % (AUTO) 5 % (2-9); NEUTROPHILS # (AUTO) 10.21 x10^3/uL (1.8-6.8); NEUTROPHILS % (AUTO) 80 % (42-75); PLATELET COUNT 391 x10^3/uL (130-400); RED BLOOD COUNT 4.69 x10^6/uL (3.82-5.3); RED CELL DISTRIBUTION WIDTH 13.4 % (9.6-15.2)
[2020-02-07 15:50] LABS: MD NO
[2020-02-07 15:59] LABS: SALICYLATE LEVEL < 1.7 mg/dL (2.8-20.0)
[2020-02-07] MEDS ORDERED: HYDROXYZINE PAMOATE 50MG CAP PO PRN (16:00)
[2020-02-07 16:01] LABS: AMPHETAMINE SCREEN, URINE Negative (Negative); BARBITURATE SCREEN, URINE Negative (Negative); BENZODIAZEPINE SCREEN, URINE Negative (Negative); CANNABINOID SCREEN, URINE Positive (Negative); COCAINE SCREEN, URINE Negative (Negative); METHADONE SCREEN, URINE Negative (Negative); OPIATE SCREEN, URINE Negative (Negative)
--- NOTE | 2020-02-07 16:01 | NUR ---
WATER PROVIDED PER REQUEST AT THIS TIME.
--- NOTE | 2020-02-07 16:29 | NUR ---
PT AMB TO BR WITH STEADY GAIT.
--- NOTE | 2020-02-07 16:39 | NUR ---
WARM BLANKET GIVEN PER REQUEST.
[2020-02-07 16:42] LABS: ALBUMIN 3.9 g/dL (3.4-5.0); ANION GAP 7 mmol/L (5-15); CALCIUM 8.8 mg/dL (8.5-10.1); CHLORIDE 110 mmol/L (98-107)
[2020-02-07 16:50] LABS: MICROSCOPIC INDICATED
[2020-02-07 16:53] LABS: ALANINE AMINOTRANSFERASE 30 U/L (12-78); ALKALINE PHOSPHATASE 66 U/L (45-117); BILIRUBIN,TOTAL 0.3 mg/dL (0.2-1.0); CREATININE 0.92 mg/dL (0.55-1.02); TOTAL PROTEIN 7.4 g/dL (6.4-8.2)
--- NOTE | 2020-02-07 17:03 | NUR ---
DIET TRAY ORDERED AT THIS TIME.
--- NOTE | 2020-02-07 17:40 | NUR ---
MEAL TRAY PROVIDED AT THIS TIME.
--- NOTE | 2020-02-07 18:26 | NUR ---
PT SLEEPING IN [facility]. RESPS EVEN AND UNLABORED. SITTER MONITORING FROM HALLWAY FOR SAFETY. ROOM REMAINS SECURE.
--- NOTE | 2020-02-07 18:29 | NUR ---
HOSPITAL BED ORDERED FROM [facility] AT THIS TIME.
--- NOTE | 2020-02-07 18:35 | NUR ---
REFUSED BY [facility], PACKET FAXED TO [facility] AND [facility]
--- NOTE | 2020-02-07 18:49 | NUR ---
REPORT GIVEN TO KIAH RAO.
--- NOTE | 2020-02-07 18:53 | NUR ---
REPORT FROM CHRIS RAO. PT SLEEPING IN NAD, EVEN AND UNLABORED RESPIRATIONS, ROOM SECURED FOR SAFETY, SITTER WATCHING FROM DOORWAY.
--- NOTE | 2020-02-07 20:11 | NUR ---
PT SLEEPING IN NAD, RESPIRATIONS EVEN AND UNLABORED. SITTER AT DOORWAY FOR SAFETY WATCH.
--- NOTE | 2020-02-07 22:46 | NUR ---
SLEEPING IN NAD, EVEN UNLABORED RESPIRATIONS. SITTER AT DOORWAY FOR SAFETY WATCH.
--- NOTE | 2020-02-08 | NUR ---
PT UP TO BR, COOPERATIVE WITH RN. SITTER WATCHING FOR SAFETY.
--- NOTE | 2020-02-08 01:00 | NUR ---
PT SLEEPING COMFORTABLY, EVEN UNLABORED RESPIRATIONS. SITTER WATCHING FOR SAFETY.
--- NOTE | 2020-02-08 02:00 | NUR ---
PT CONTINUES TO SLEEP IN NO ACUTE DISTRESS, NOTED EVEN RESPIRATIONS. SITTER MONITORING.
--- NOTE | 2020-02-08 04:02 | NUR ---
SLEEPING, EVEN AND UNLABORED RESPIRATIONS. ROOM SECURED FOR SAFETY, SITTER CONTINUES TO MONITOR.
--- NOTE | 2020-02-08 04:56 | NUR ---
PT AWAKE STATES SHE IS VERY TIRED AND WANTS TO SLEEP, PT REPORTS SHE HAD A "REALLY BAD PANIC ATTACK" WHEN SHE CHECKED INTO ER. ROOM SECURED FOR SAFETY, SITTER MONITORING FROM DOORWAY.
--- NOTE | 2020-02-08 06:52 | NUR ---
REPORT GIVEN TO THOMAS RAO.
--- NOTE | 2020-02-08 07:11 | NUR ---
PT RESTING IN BED WITH EYES CLOSED. NO STATED NEEDS AT THIS TIME. WILL CONTINUE TO MONITOR.
[2020-02-08 07:57] VITALS: BP 135/82
--- NOTE | 2020-02-08 08:01 | NUR ---
PT GIVEN MEAL TRAY. PT A&OX4, RESTING CALMLY IN BED. VSS, SEE CHARTED. SITTER AT DOOR FOR OBS.
--- NOTE | 2020-02-08 09:41 | NUR ---
PT LAYING DOWN IN BED, RESP EVEN AND NON LABORED. NO STATED NEEDS AT THIS TIME. SITTER AT DOOR FOR OBS.
--- NOTE | 2020-02-08 10:32 | NUR ---
PT RESTING IN BED WITH EYES CLOSED. SITTER AT DOOR.
[2020-02-08] MEDS ORDERED: IBUPROFEN 600 MG TABLET PO ONE (11:00)
--- NOTE | 2020-02-08 11:16 | NUR ---
PT ASKING FOR MEDS FOR MENSTRUAL CRAMPS. ORDER PLACED BY ERP. PT THEN STATED, "I DON'T EVEN NEED THAT, I HAVE MY OWN MEDS AT HOME". PT ASKING TO LEAVE, STATED SHE HAS TO WORK AND CAN'T STAY HERE BECAUSE SHE CAN'T AFFORD IT. PT MADE AWARE THE PSYCH MEDICAL CARE EVALUATION SPECIALIST WILL BE IN TO SEE HER TODAY. SHE CAN DISCUSS THE STATUS OF HER LEGAL HOLD WITH THEM. PT OKAY WITH THIS AT THIS TIME. PT GIVEN WATER AND JUICE PER REQUEST. PT BACK RESTING IN BED, SITTER AT DOOR, WILL CONTINUE TO MONITOR.
--- NOTE | 2020-02-08 12:06 | NUR ---
PT SITTING UP ON EDGE OF BED. NO STATED NEEDS CURRENTLY. WILL CONTINDUE TO MONITOR. SITTER AT DOOR FOR OBS.
== END 2020-02-08 12:44 | disposition home or self-care (01) ==
LOC: ED 19:36
DX: R45.851 Suicidal ideations (principal); F41.9 Anxiety disorder, unspecified; F31.9 Bipolar disorder, unspecified
CPT/HCPCS: 36415; 80053; 80307; 81001; 84443; 84703; 85025; 87086; 99283